=== PATIENT | male | born 2000 | race Hispanic/Latino ===

== ENCOUNTER 2021-11-03 22:17 | Emergency (ER) | payer OTHER ==
[~2021-11-03] VITALS: Ht 177.8 cm; Wt 106.6 kg
[2021-11-03] MEDS ORDERED: ONDANSETRON 4MG INJ IVP ONE (23:00)
[2021-11-03] MEDS ORDERED: MORPHINE 4 MG SYG IVP ONE (23:00)
[2021-11-03 23:03] LABS: BASOPHILS % (AUTO) 0.9 % (0.0-5.0); EOSINOPHILS % (AUTO) 1.1 % (0.0-8.0); HEMATOCRIT 47.8 % (42-54); LYMPHOCYTES % (AUTO) 29.1 % (21.0-51.0); MEAN CORPUSCULAR HEMOGLOBIN 29.1 pg (27.0-33.0); MEAN CORPUSCULAR HGB CONC 32.8 g/dL (32.0-36.0); MEAN CORPUSCULAR VOLUME 88.5 fL (79-99); MONOCYTES % (AUTO) 6.8 % (3.0-13.0); NEUTROPHILS % (AUTO) 61.8 % (40.0-77.0); PLATELET COUNT (AUTO) 198 K/uL (130-400); RED CELL DISTRIBUTION WIDTH 13.6 % (11.0-15.5); WHITE BLOOD COUNT (AUTO) 7.1 K/uL (4.8-10.8)
[2021-11-03 23:34] LABS: POTASSIUM 3.9 mmol/L (3.5-5.1)
[2021-11-03 23:39] LABS: ALBUMIN 4.4 g/dL (3.5-5.0); BILIRUBIN,TOTAL 0.3 mg/dL (0.2-1.0); TOTAL PROTEIN, SERUM 7.8 g/dL (6.0-8.3)
[2021-11-04 00:27] LABS: APPEARANCE,URINE Clear (CLEAR); BILIRUBIN,URINE Negative (NEGATIVE); COLOR,URINE Yellow (YELLOW); GLUCOSE, URINE (UA) Negative (NEGATIVE); KETONES,URINE Negative (NEGATIVE); LEUKOCYTE ESTERASE ,URINE Negative (NEGATIVE); NITRATE,URINE Negative (NEGATIVE); OCCULT BLOOD,URINE Negative (NEGATIVE); PROTEIN,URINE Negative (NEGATIVE); UROBILINOGEN,URINE 0.2 mg/dL (0.2-1.0)
[2021-11-04] MEDS ORDERED: IBUPROFEN 800 MG TAB PO ONE (00:30)
[2021-11-04] MEDS ORDERED: IOHEXOL 350 MG/ML 100ML INFUS..BTL IV ONE (01:08)
[2021-11-04] MEDS ORDERED: IBUPROFEN 800 MG TAB ONE (01:58)
[2021-11-04] MEDS ORDERED: ORPHENADRINE CITRATE 30 MG/ML ML IV ONE (02:00)
[2021-11-04 02:08] VITALS: BP 144/71
[2021-11-04] MEDS ORDERED: CYCL-309 PO (02:08)
[2021-11-04] MEDS ORDERED: NAPR-1180 PO (02:08)
== END 2021-11-04 02:21 | disposition home or self-care (01) ==
LOC: EDH 22:17
DX: N50.82 Scrotal pain (principal); R10.30 Lower abdominal pain, unspecified
CPT/HCPCS: 36415; 74178; 76870; 80053; 81003; 85025; 96374; 96375 ×2; 99285; J2270; J2360; J2405; Q9967

== ENCOUNTER 2022-02-07 22:51 | Emergency (ER) | payer OTHER ==
[~2022-02-07] VITALS: Ht 175.3 cm; Wt 102.1 kg
[~2022-02-07 22:51] MED LIST: CYCL-309 PO; NAPR-1180 PO
[2022-02-08 00:28] VITALS: BP 132/64
== END 2022-02-08 00:29 | disposition home or self-care (01) ==
LOC: EDH 22:51
DX: S93.601A Unspecified sprain of right foot, initial encounter (principal); Z79.1 Long term (current) use of non-steroidal anti-inflammatories (NSAID); X58.XXXA Exposure to other specified factors, initial encounter; Y93.89 Activity, other specified; Y92.89 Other specified places as the place of occurrence of the external cause; Y99.8 Other external cause status
CPT/HCPCS: 73630

== ENCOUNTER 2022-06-28 11:31 | Emergency (ER) | payer OTHER ==
[~2022-06-28] VITALS: Ht 175.3 cm; Wt 99.8 kg
[2022-06-28] MEDS ORDERED: IBUPROFEN 800 MG TAB PO ONE (13:00)
[2022-06-28] MEDS ORDERED: IBUP-2071 PO (13:15)
[2022-06-28 13:29] VITALS: BP 126/78
== END 2022-06-28 13:50 | disposition home or self-care (01) ==
LOC: EDH 11:31
DX: S83.411A Sprain of medial collateral ligament of right knee, initial encounter (principal); Z79.899 Other long term (current) drug therapy; X50.1XXA Overexertion from prolonged static or awkward postures, initial encounter; Y93.61 Activity, american tackle football; Y92.321 Football field as the place of occurrence of the external cause; Y99.8 Other external cause status
CPT/HCPCS: 73562

== ENCOUNTER 2024-02-24 23:05 | Emergency (ER) | payer OTHER ==
[~2024-02-24] VITALS: Ht 165.1 cm; Wt 104.3 kg
[~2024-02-24 23:05] MED LIST changes: +IBUP-2071 PO
[2024-02-24 23:55] LABS: BASOPHILS # (AUTO) 0.05 K/uL (0.00-0.20); BASOPHILS % (AUTO) 0.7 % (0.0-5.0); EOSINOPHILS # (AUTO) 0.03 K/uL (0.00-0.70); EOSINOPHILS % (AUTO) 0.4 % (0.0-8.0); HEMATOCRIT 48.3 % (42-54); IMMATURE GRANULOCYTE ABSOLUTE 0.02 K/uL (0-1); LYMPHOCYTES # (AUTO) 1.4 K/uL (1.0-4.8); LYMPHOCYTES % (AUTO) 20.2 % (21.0-51.0); MEAN CORPUSCULAR HEMOGLOBIN 28.8 pg (27.0-33.0); MEAN CORPUSCULAR HGB CONC 33.3 g/dL (32.0-36.0); MEAN CORPUSCULAR VOLUME 86.3 fL (79-99); MONOCYTES # (AUTO) 0.5 K/uL (0.1-1.0); MONOCYTES % (AUTO) 7.4 % (3.0-13.0); NEUTROPHILS # (AUTO) 4.8 K/uL (1.8-7.7); PLATELET COUNT (AUTO) 193 K/uL (130-400); RED CELL DISTRIBUTION WIDTH 13.2 % (11.0-15.5); WHITE BLOOD COUNT (AUTO) 6.7 K/uL (4.8-10.8)
[2024-02-25 00:17] LABS: CREATININE 1.2 mg/dL (0.5-1.3); POTASSIUM 3.8 mmol/L (3.5-5.1)
[2024-02-25 00:21] LABS: ALBUMIN 4.4 g/dL (3.5-5.0); BILIRUBIN,TOTAL 0.7 mg/dL (0.2-1.0); TOTAL PROTEIN, SERUM 7.7 g/dL (6.0-8.3)
[2024-02-25 00:38] LABS: APPEARANCE,URINE CLOUDY (CLEAR); BILIRUBIN,URINE NEGATIVE (NEGATIVE); COLOR,URINE YELLOW (YELLOW); GLUCOSE, URINE (UA) NEGATIVE (NEGATIVE); KETONES,URINE NEGATIVE (NEGATIVE); LEUKOCYTE ESTERASE ,URINE NEGATIVE Leu/uL (NEGATIVE); NITRATE,URINE NEGATIVE (NEGATIVE); OCCULT BLOOD,URINE NEGATIVE (NEGATIVE); PROTEIN,URINE 20 mg/dL (NEGATIVE); UROBILINOGEN,URINE 0.2 mg/dL (0.2-1.0)
[2024-02-25 00:42] LABS: BACTERIA,URINE FEW /HPF (None Seen); MUCUS,URINE FEW LPF (None Seen); SQUAMOUS EPITHELIAL CELL,UR RARE /HPF (0-2)
[2024-02-25] MEDS ORDERED: IOHEXOL 350 MG/ML 100ML INFUS..BTL IV ONE (00:45)
[2024-02-25 03:13] VITALS: BP 136/88; PULSE 82; RESP 16; O2SAT 98
== END 2024-02-25 03:20 | disposition home or self-care (01) ==
LOC: EDH 23:05
DX: N50.811 Right testicular pain (principal); Z79.899 Other long term (current) drug therapy
CPT/HCPCS: 99285; 74177; 80053; 83690; 85025; 81001 ×2; 36415; 76870; Q9967

== ENCOUNTER 2024-10-31 10:59 | Emergency (ER) | payer SELFPAY ==
[~2024-10-31] VITALS: Ht 175.3 cm; Wt 129.3 kg
--- NOTE | 2024-10-31 11:22 | ERN ---
ED Note History of Present Illness Stated Complaint: ABDOMINAL PAIN Chief Complaint: Abdominal Pain Time Seen by MD: 11:03 Dictation: History of present illness: 24-year-old male with no significant past medical history presented to ED with complaints of loose stools since 2 days. As per the patient he ate undercooked will 2 days back for which he developed watery stools, at least 10 times a day for past 2 days associated with generalized abdominal cramps and nausea. He denies black or red stools, fever, vomiting, dysuria. As per the patient no one else who had the same food experienced similar symptoms. Allergies: Coded Allergies: No Known Drug Allergies (Unverified Allergy, Unknown, 11/03/21) Home Meds Active Scripts Lactobacillus Rhamnosus GG (Culturelle) 10 Billion Cell Capsule, 1 CAP PO DAILY for 7 Days, #7 CAP 0 Refills Prov:SACHIN MORRIS MD 10/31/24 Ibuprofen (Ibuprofen) 800 Mg Tablet, 800 MG PO TID PRN for PAIN, #45 TAB Prov:CIARRA MONTANO 06/28/22 Naproxen (Naprosyn) 500 Mg Tablet, 500 MG PO BIDPC for 10 Days, #20 TAB 0 Refills Prov:KURTIS CEDEÑO MD 11/04/21 Cyclobenzaprine HCl (Cyclobenzaprine HCl) 10 Mg Tablet, 10 MG PO TID for 5 Days, #15 TAB 0 Refills Prov:KURTIS CEDEÑO MD 11/04/21 Past Medical History Past Medical History: No Pertinent History Surgical History: None Family History: Negative Social History: Lives with family, Other Review of System Dictation REVIEW OF SYSTEMS Positive for loose stools abdominal cramps and nausea CONSTITUTIONAL: Denies fevers, chills, or night sweats. No unintentional weight loss reported. ENT: No hearing loss, otalgia, otorrhea, rhinitis, rhinorrhea, hoarseness, or sore throat. CARDIOVASCULAR: Denies any exertional angina, dyspnea on exertion, orthopnea, paroxysmal nocturnal dyspnea, palpitations claudication. PULMONARY: Denies any shortness of breath, cough, phlegm / sputum, hemoptysis, pleuritic chest pain. SLEEP: Denies morning headaches, daytime somnolence or napping. Denies difficulty falling asleep, staying asleep, waking from sleep. Denies knowledge of snoring. GASTROINTESTINAL: Denies any type of dysphagia to either liquids or solids. Denies nausea, vomiting, abdominal pain, diarrhea, constipation, blood in stools . NEUROLOGICAL: Denies headache, motor weakness, sensory deficit, vertigo / spinning sensation, gait abnormalities, or tremors. GENITOURINARY: Denies frequency, urgency, nocturia, hematuria or incontinence, low urinary stream, straining to void, urinary intermittency or hesitancy ENDOCRINOLOGY: Denies polyuria, polydipsia, polyphagia or heat / cold intolerance. HEMATOLOGY: Denies thrombophilia / previous clots, or coagulopathy / bleeding disorders. ONCOLOGIC: Denies personal history of malignancy. DERMATOLOGIC: Denies rashes or pruritus. PSYCHIATRIC: Denies any suicidal or homicidal ideation. Denies hallucinations. Initial Vital Sign VS Vital Signs Date Time Temp Pulse Resp B/P (MAP) Pulse Ox O2 Delivery O2 Flow Rate FiO2 10/31/24 11:01 98.6 61 20 137/90 98 0 Physical Exam Dictation PHYSICAL EXAM GENERAL APPEARANCE: Well nourished . Awake and alert. Oriented to time, place and person. No acute cardiopulmonary distress. Dry lips + moist oral mucosa HEENT: Head normocephalic , atraumatic. Sclera anicteric . Pupils are round and reactive. Extraocular movements intact . No conjunctival injection. No nasal congestion. No throat congestion .Oral mucosa moist. NECK: Supple. No JVD. No thyromegaly. No submental, submandibular, pre-/postauricular, occipital or supraclavicular lymphadenopathy. No carotid bruits. CHEST: Normal chest expansion. No Telemetry. LUNGS: Clear to auscultation bilaterally . No rales, rhonchi or any wheezing. Equal tactile fremitus. Resonant to percussion . CARDIOVASCULAR: Regular rate and rhythm. S1 and S2 normal. No rubs, murmurs or gallops. ABDOMEN: Soft, nontender, and nondistended. There is no rebound tenderness, voluntary guarding, or rigidity. No hepatosplenomegaly. Bowel sounds normal in all four quadrants . NEUROLOGICAL: Cranial nerves II-XII grossly intact. Motor is 5/5 in bilateral upper and lower extremities . No sensory deficits. EXTREMITIES: No edema, No cyanosis , No clubbing. Good capillary refill. SKIN: No skin breakdown. No rashes or lesions . PSYCHIATRY: Normal affect .No auditory or visual hallucinations. Normal speech. No dysarthria. Results (Laboratory/Radiology) Laboratory/Radiology Laboratory Tests Test 10/31/24 11:41 White Blood Count 4.3 K/uL (4.8-10.8) L Red Blood Count 5.29 MIL/uL (4.50-6.20) Hemoglobin 15.2 g/dL (14.0-18.0) Hematocrit 46.3 % (42-54) Mean Corpuscular Volume 87.5 fL (79-99) Mean Corpuscular Hemoglobin 28.7 pg (27.0-33.0) Mean Corpuscular Hemoglobin Concent 32.8 g/dL (32.0-36.0) Red Cell Distribution Width 13.0 % (11.0-15.5) Platelet Count 228 K/uL (130-400) Mean Platelet Volume 10.6 fL (7.5-10.5) H Immature Granulocyte % (Auto) 0.5 % (0-1) Neutrophils (%) (Auto) 53.1 % (40.0-77.0) Lymphocytes (%) (Auto) 37.5 % (21.0-51.0) Monocytes (%) (Auto) 6.8 % (3.0-13.0) Eosinophils (%) (Auto) 1.2 % (0.0-8.0) Basophils (%) (Auto) 0.9 % (0.0-5.0) Neutrophils # (Auto) 2.3 K/uL (1.8-7.7) Lymphocytes # (Auto) 1.6 K/uL (1.0-4.8) Monocytes # (Auto) 0.3 K/uL (0.1-1.0) Eosinophils # (Auto) 0.05 K/uL (0.00-0.70) Basophils # (Auto) 0.04 K/uL (0.00-0.20) Absolute Immature Granulocyte (auto 0.02 K/uL (0-1) Nucleated Red Blood Cells 0.0 % (0.0-0.19) Sodium Level 140 mmol/L (136-145) Potassium Level 4.5 mmol/L (3.5-5.1) Chloride Level 105 mmol/L (101-111) Carbon Dioxide Level 30 mmol/L (21-32) Blood Urea Nitrogen 12 mg/dL (7-18) Creatinine 1.0 mg/dL (0.5-1.3) Glomerular Filtration Rate Calc 107 mL/min (>90) Random Glucose 97 mg/dL (70-105) Total Calcium 9.2 mg/dL (8.5-10.1) ED Course ED Course Orders Procedure Category Date Status Time Cbc With Differential LAB 10/31/24 Complete 11: Basic Metabolic Panel LAB 10/31/24 Complete 11:21 Urinalysis Profile LAB 10/31/24 Logged 11:21 Ondansetron 4mg Inj PHA 10/31/24 Complete (Zofran 4mg Inj) 12:00 Current Medications Medications (Trade) Dose Ordered Sig/Hansa Route PRN Reason Start Time Stop Time Status Last Admin Dose Admin Ondansetron HCl (zoFRAN 4MG INJ) 4 mg ONCE ONCE IVP 10/31/24 12:00 10/31/24 12:03 DC Vital Signs Date Time Temp Pulse Resp B/P (MAP) Pulse Ox O2 Delivery O2 Flow Rate FiO2 10/31/24 11:01 98.6 61 20 137/90 98 0 11:15 a.m.: Patient is hemodynamically stable. We will request basic lab work to rule out an infection, dehydration. Requested IV ondansetron stat. Medical Decision Making MDM Differential diagnosis : Acute gastroenteritis, food poisoning, UTI Rationale: Tests considered and ordered secondary to shared decision making include: I will re-evaluate the patient after treatment and diagnostic exams have returned to determine whether they require further testing, can be safely discharged home, or need admission for further treatment and evaluation. Given the social determinants of health affecting care, including literacy, access to medical care, prescription drug management, and [id number] gianna gs, I will ensure that treatment plans are tailored accordingly. There are no social concerns with this patient. Risk of complication and/or morbidity or mortality of patient management: None Need for hospitalization: Patient does not meet criteria for hospitalization. Need for emergency major/minor surgery: No Prescription drug management Prescriptions will include symptomatic care Medications-Per medication reconciliation Previous outside records reviewed: Old ER visits. Patient's prior external medical records from other ER visits were reviewed by me as indicated. Prior testing and results from previous visits were reviewed. Prior tests were taken into account with medical decision making and resource utilization, independent historian/historians were used to obtain complete medical history. I independently interpreted the test that were performed, results were reviewed by me and considered findings on radiology. Medical management and examination interpretation discussions was done by me with other qualified healthcare professionals as indicated for the patient's care. Revaluation: Patient remained hemodynamically stable. Disposition : We will discharge him home. DX & DISP Disposition: Discharge Departure Impression: Primary Impression: Acute gastroenteritis Condition: Stable Scripts Lactobacillus Rhamnosus GG (Culturelle) 10 Billion Cell Capsule 1 CAP PO DAILY for 7 Days, #7 CAP 0 Refills Prov: SACHIN MORRIS MD 10/31/24 Additional Instructions: You are diagnosed with acute gastroenteritis. This is often caused by bad food or a virus. This type of infection we will often clear on its own without antibiotics or further treatment. Your blood work (CBC, BMP) is unremarkable. Increase oral hydration. Avoid sugary drinks like soda or fruit juice. Increased high-fiber foods, such as bananas and vegetables. Follow-up with primary care provider in 3-5 days if you continue with symptoms. Take medications as directed here in the emergency room. It is okay to continue home medications unless otherwise discussed during your visit in the emergency room today. Please return to the emergency department if you have any concerns. Return to your nearest emergency room if symptoms worsen or if there is no improvement. Call 911 if you need immediate assistance. Referrals: SELF,REFERRAL (PCP) I performed a substantive portion of the visit. I have reviewed and personally made and approve the management plan that is documented in the notes by myself with JOHN/resident. I acknowledged full responsibility for the patient's management plan. SACHIN MORRIS MD Oct 31, 2024 11:22 JUVENAL FLORES DO Oct 31, 2024 12:07
[2024-10-31] MEDS ORDERED: LACT1CAP58 PO (11:42)
[2024-10-31 11:50] LABS: BASOPHILS # (AUTO) 0.04 K/uL (0.00-0.20); BASOPHILS % (AUTO) 0.9 % (0.0-5.0); EOSINOPHILS # (AUTO) 0.05 K/uL (0.00-0.70); EOSINOPHILS % (AUTO) 1.2 % (0.0-8.0); HEMATOCRIT 46.3 % (42-54); IMMATURE GRANULOCYTE ABSOLUTE 0.02 K/uL (0-1); LYMPHOCYTES # (AUTO) 1.6 K/uL (1.0-4.8); LYMPHOCYTES % (AUTO) 37.5 % (21.0-51.0); MEAN CORPUSCULAR HEMOGLOBIN 28.7 pg (27.0-33.0); MEAN CORPUSCULAR HGB CONC 32.8 g/dL (32.0-36.0); MEAN CORPUSCULAR VOLUME 87.5 fL (79-99); MONOCYTES # (AUTO) 0.3 K/uL (0.1-1.0); MONOCYTES % (AUTO) 6.8 % (3.0-13.0); NEUTROPHILS # (AUTO) 2.3 K/uL (1.8-7.7); NEUTROPHILS % (AUTO) 53.1 % (40.0-77.0); PLATELET COUNT (AUTO) 228 K/uL (130-400); RED BLOOD CELL COUNT(AUTO) 5.29 MIL/uL (4.50-6.20); WHITE BLOOD COUNT (AUTO) 4.3 K/uL (4.8-10.8)
[2024-10-31 11:59] LABS: POTASSIUM 4.5 mmol/L (3.5-5.1)
[2024-10-31] MEDS ORDERED: ondanSETRON 4MG INJ IVP ONE (12:00)
[2024-10-31 13:03] VITALS: BP 127/68; PULSE 61; RESP 20; TEMP 98.6; O2SAT 98
[2024-10-31] MEDS: ondanSETRON ODT 4MG TAB SL ONE (14:19)
== END 2024-10-31 14:21 | disposition home or self-care (01) ==
LOC: EDH 10:59
DX: K52.9 Noninfective gastroenteritis and colitis, unspecified (principal)
CPT/HCPCS: 36415; 80048; 85025; 99283